=== PATIENT | female | born 1960 | race Caucasian/White ===

== ENCOUNTER 2024-09-13 17:41 | Emergency (ER) | payer OTHER, SELFPAY ==
[2024-09-13 17:47] VITALS: BP 125/69; PULSE 67; RESP 14; TEMP 36.5; O2SAT 96; BMI 21.4
--- NOTE | 2024-09-13 18:43 | DI.RAD.S_ITS ---
PROCEDURE: XR CERVICAL SPINE 2V OR 3V INDICATIONS: injury TECHNIQUE: 3 view(s) of the cervical spine were acquired. COMPARISON: None. FINDINGS: Bones: No fractures or dislocations to the T1 level. The lateral masses of C1 appear intact on the odontoid view. No suspicious bony lesions. Soft tissues: No prevertebral soft tissue swelling. IMPRESSION: No acute displaced fracture or traumatic subluxation. Approved by: Lorin Evangelista M.D.,Ph.D. on 09/13/2024 at 20:07
--- NOTE | 2024-09-13 18:43 | DI.RAD.S_ITS ---
PROCEDURE: XR HAND LT MIN 3V INDICATIONS: injury TECHNIQUE: 3 views of the hand(s) acquired. COMPARISON: None. FINDINGS: Bones: No fractures or dislocations. Carpal bones are normally aligned. No suspicious bony lesions. Soft tissues: No suspicious soft tissue calcifications. IMPRESSION: No acute bony abnormality. Approved by: oLrin Evangelista M.D.,Ph.D. on 09/13/2024 at 20:07
--- NOTE | 2024-09-13 18:43 | DI.RAD.S_ITS ---
PROCEDURE: XR WRIST LT MIN 3V INDICATIONS: injury TECHNIQUE: 4 views of the wrist were acquired. COMPARISON: None. FINDINGS: Bones: No fractures or dislocations. No suspicious bony lesions. Soft tissues: No suspicious soft tissue calcifications. IMPRESSION: No acute bony abnormality. If symptoms persist with conservative management, consider cross-sectional imaging such as CT or MRI. Approved by: Lorin Evangelista M.D.,Ph.D. on 09/13/2024 at 20:12
--- NOTE | 2024-09-13 18:43 | DI.RAD.S_ITS ---
PROCEDURE: XR HAND RT MIN 3V INDICATIONS: injury TECHNIQUE: 3 views of the hand(s) acquired. COMPARISON: None. FINDINGS: Bones: Ossific density adjacent to the ulnar aspect of the 3rd PIP appears well-corticated and favored to represent degenerative changes, however acute fracture cannot be excluded. Carpal bones are normally aligned. No suspicious bony lesions. Soft tissues: No suspicious soft tissue calcifications. IMPRESSION: Ossific density adjacent to the ulnar aspect of the 3rd PIP joint, possible degenerative changes, however acute fracture cannot be excluded. Recommend correlation with point tenderness. No other acute osseous abnormality identified. Scattered degenerative changes noted in the interphalangeal joints. Approved by: Lorin Evangelista M.D.,Ph.D. on 09/13/2024 at 20:10
--- NOTE | 2024-09-13 18:43 | DI.RAD.S_ITS ---
PROCEDURE: XR THORACIC SPINE 3V INDICATIONS: injury TECHNIQUE: 3 views of the thoracic spine were acquired. COMPARISON: None. FINDINGS: Bones: No fractures or dislocations. No suspicious bony lesions. 12 pairs of ribs are noted, and appear intact where visualized. Soft tissues: No paravertebral stripe thickening. IMPRESSION: No acute bony abnormality. If symptoms persist with conservative management, consider cross-sectional imaging such as CT or MRI. Approved by: Lorin Evangelista M.D.,Ph.D. on 09/13/2024 at 20:11
--- NOTE | 2024-09-13 18:43 | DI.RAD.S_ITS ---
PROCEDURE: XR WRIST RT MIN 3V INDICATIONS: injury TECHNIQUE: 4 views of the wrist were acquired. COMPARISON: None. FINDINGS: Bones: No fractures or dislocations. No suspicious bony lesions. Soft tissues: No suspicious soft tissue calcifications. IMPRESSION: No acute bony abnormality. Approved by: Lorin Evangelista M.D.,Ph.D. on 09/13/2024 at 20:13
--- NOTE | 2024-09-13 18:45 | PC.NURSE ---
Patient reports at work Thursday, glass doors of [employer] fell down onto her upper back, bilateral arms and wrists. Patient reports severe pain in both hands and wrists. States she has been having a hard time completing tasks. CMS intact. Old bruises noted to forearm and on dorsal aspect of hand near thumb. Patient has good ROM in both upper extremities however reports pain with movement. Tender to palpation on paraspinal muscles.
[2024-09-13] MEDS: KETOROLAC 30 MG/ML VIAL IM (18:51)
--- NOTE | 2024-09-13 18:57 | ED_ITS ---
HPI - Back Pain/Injury General Chief Complaint: Back Pain/Injury Stated Complaint: severe headache, neck injury on thursday Time Seen by Provider: 09/13/24 17:56 Related Data Home Medications Medication Instructions Recorded Confirmed citalopram PO 09/13/24 09/13/24 lamotrigine [Lamictal] PO PRN 09/13/24 09/13/24 lorazepam PO PRN 09/13/24 09/13/24 trazodone PO 09/13/24 09/13/24 Allergies Allergy/AdvReac Type Severity Reaction Status Date / Time bee venom protein (honey bee) Allergy Unknown Verified 09/13/24 17:24 codeine Allergy Unknown Verified 09/13/24 17:24 Patient History Social History Smoking Status: Unknown if ever smoked Smoking Status: Unknown if ever smoked Exam Initial Vital Signs Initial Vital Signs: Vital Signs Temperature 97.7 F 09/13/24 17:47 Pulse Rate 67 09/13/24 17:47 Respiratory Rate 14 09/13/24 17:47 Blood Pressure 125/69 09/13/24 17:47 Pulse Oximetry 96 09/13/24 17:47 Oxygen Delivery Method Room Air 09/13/24 17:47 Course Orders Ordered: ED Orders 09/13/24 18:43 XR cervical spine 2V or 3V Stat XR hand LT min 3V Stat XR hand RT min 3V Stat XR thoracic spine 3V Stat XR wrist LT min 3V Stat XR wrist RT min 3V Stat Discontinued Medications Ketorolac Tromethamine (Ketorolac 30 Mg/Ml Vial) 30 mg IM NOW ONE Stop: 09/13/24 18:46 Last Admin: 09/13/24 18:51 Dose: 30 mg Documented By: [facility] Vital Signs Vital signs: Vital Signs - 8 hr 09/13/24 17:47 Temperature 97.7 F Pulse Rate 67 Respiratory Rate 14 Blood Pressure 125/69 Pulse Oximetry 96 Oxygen Delivery Method Room Air Discharge Plan Departure Prescriptions: No Action lamotrigine [Lamictal] PO PRN lorazepam PO PRN citalopram PO trazodone PO Referrals: Miscellaneous,Doctor, [Primary Care Provider] -
[2024-09-13 19:55] VITALS: BP 122/77; PULSE 56; RESP 16; TEMP 36.6; O2SAT 97
--- NOTE | 2024-09-13 21:36 | ED.BACK ---
HPI - Back Pain/Injury General Chief Complaint: Back Pain/Injury Stated Complaint: severe headache, neck injury on thursday Time Seen by Provider: 09/13/24 17:56 History of Present Illness HPI Narrative: 64-year-old female presents for head, neck, shoulder, arm, hand pain since injury 2 days prior. Patient works at [employer] and was bending over a cabinet when the glass case fell, landing on her upper back, wrists, and arms. Patient reporting pain from her shoulders to her hands. Referred to ED today from [facility] Jarocho states that she has already called for a physical therapy appointment at [facility], upcoming in the next 2 weeks. Denies numbness, weakness. No medications taken prior to arrival. Denies previous injuries to these areas. Unknown how heavy the deli glass is. Related Data Home Medications Medication Instructions Recorded Confirmed citalopram PO 09/13/24 09/13/24 lamotrigine [Lamictal] PO PRN 09/13/24 09/13/24 lorazepam PO PRN 09/13/24 09/13/24 trazodone PO 09/13/24 09/13/24 Allergies Allergy/AdvReac Type Severity Reaction Status Date / Time bee venom protein (honey bee) Allergy Unknown Verified 09/13/24 17:24 codeine Allergy Unknown Verified 09/13/24 17:24 Patient History Social History Smoking Status: Unknown if ever smoked Smoking Status: Unknown if ever smoked Exam Initial Vital Signs Initial Vital Signs: Vital Signs Temperature 97.7 F 09/13/24 17:47 Pulse Rate 67 09/13/24 17:47 Respiratory Rate 14 09/13/24 17:47 Blood Pressure 125/69 09/13/24 17:47 Pulse Oximetry 96 09/13/24 17:47 Oxygen Delivery Method Room Air 09/13/24 17:47 Const: Awake, alert, no acute distress, nontoxic appearing Neck: No step-offs, no midline tenderness, full range of motion MSK: No deformity, full range of motion, able to make thumbs up, A-Okay sign, touch all fingers to thumbs bilaterally. Skin: Warm, Dry, intact, no rashes Neuro: AO x3, CN II-XII grossly intact, moves all extremities Course Orders Ordered: Discontinued Medications Ketorolac Tromethamine (Ketorolac 30 Mg/Ml Vial) 30 mg IM NOW ONE Stop: 09/13/24 18:46 Last Admin: 09/13/24 18:51 Dose: 30 mg Documented By: LEONID Tramadol HCl (Tramadol 50 Mg Prepack) 1 bottle MISC DIRECTED ONE Stop: 09/13/24 21:47 Last Admin: 09/13/24 21:59 Dose: 1 bottle Documented By: RUPERTO Vital Signs Vital signs: Vital Signs - 8 hr 09/13/24 17:47 09/13/24 19:55 Temperature 97.7 F 97.9 F Pulse Rate 67 56 L Respiratory Rate 14 16 Blood Pressure 125/69 122/77 Pulse Oximetry 96 97 Oxygen Delivery Method Room Air Room Air MDM - Back Pain/Injury MDM Narrative Medical decision making narrative: Shoulder, arm, wrist, hand pain after workplace accident 2 days prior. Neurovascularly intact without any deficits. No deformities. No medications taken prior to arrival. X-ray imaging of C-spine, hands, thoracic spine, wrists obtained. Of note, there was an ossific density adjacent to the ulnar aspect of the 3rd PIP joint noted on the right-hand x-ray. This does not correlate with any point tenderness on physical exam. Patient was neurovascularly intact with full range of motion of all of her joints. Based on patient's description of events I have low suspicion for acute bony injury at this time. Patient already has scheduled upcoming PT appointment. [facility] paperwork filled out. Short course of pain medications sent with the patient. Placed in bilateral wrist splints for comfort as needed. Discharge Plan Departure Patient Disposition: Home Clinical Impression: Neck pain, Bilateral shoulder pain, Bilateral hand pain Instructions: DI for Contusion Activity Restrictions/Additional Instructions: YOUR X-RAYS TODAY DID NOT SHOW ANY ACUTE FRACTURES. TAKE 1000 MG OF TYLENOL AND 400 MG OF IBUPROFEN EVERY 6-8 HOURS NEEDED FOR PAIN. TAKE NO MORE THAN 4000 MG OF TYLENOL TOTAL DAILY. A PREPACK OF PAIN MEDICATIONS HAS BEEN GIVEN TO YOU. DO NOT TAKE THIS MEDICATION WITH ALCOHOL OR BEFORE DRIVING IT MAY CAUSE DROWSINESS. FOLLOW UP WITH YOUR PHYSICAL THERAPY APPOINTMENTS SCHEDULED. ALSO I RECOMMEND FOLLOWING UP WITH A PRIMARY CARE DOCTOR. Prescriptions: No Action lamotrigine [Lamictal] PO PRN lorazepam PO PRN citalopram PO trazodone PO Referrals: Miscellaneous,Doctor, MD [Primary Care Provider] - Stand Alone Forms: Patient Portal/API/Survey, Work Release Note
[2024-09-13] MEDS: TRAMADOL 50 MG PREPACK 1 BOTTLE MISC (21:59)
[2024-09-13 22:18] VITALS: BP 125/70; PULSE 65; RESP 16; TEMP 36.6; O2SAT 98
== END 2024-09-13 22:18 | disposition home or self-care (01) ==
PROVIDERS: Emergency Provider Emergency Medicine
DX: M54.2 Cervicalgia (principal); M25.512 Pain in left shoulder; M25.511 Pain in right shoulder; M79.642 Pain in left hand; M79.641 Pain in right hand; R51.9 Headache, unspecified; M25.532 Pain in left wrist; M25.531 Pain in right wrist; W20.8XXA Other cause of strike by thrown, projected or falling object, initial encounter; Y92.512 Supermarket, store or market as the place of occurrence of the external cause; Y99.0 Civilian activity done for income or pay
CPT/HCPCS: 72040; 72072; 73110; 73130; 96372; 99284; J1885

== ENCOUNTER → 2025-02-17 13:48 | Outpatient (CLI) | payer OTHER, SELFPAY ==
--- NOTE | 2025-02-17 13:50 | DI.CT.S_ITS ---
PROCEDURE: CT CERVICAL SPINE WO CON INDICATIONS: left cervical radiculopathy TECHNIQUE: Noncontrast 3 mm thick sections acquired from the skull base to the T4 level. Sagittal and coronal reformats were then constructed. For radiation dose reduction, the following was used: automated exposure control, adjustment of mA and/or kV according to patient size. COMPARISON: None. FINDINGS: Image quality: Excellent. Bones: No fractures or dislocations. Multilevel degenerative changes of the cervical spine, most pronounced at C6-C7. Straightening of the normal cervical lordosis. Minimal retrolisthesis of C6 on C7 and minimal anterolisthesis of C7 on T1. [id number] central canal stenosis at C6-C7. At least moderate bilateral neural foraminal stenosis at C6-C7. No significant stenosis at other levels. Decreased osseous mineralization. Visualized superior ribs are intact. Soft tissues: Prevertebral soft tissues are normal in thickness. No paravertebral hematomas. No apical pneumothoraces. [id number] emphysematous changes. Subcutaneous nodule within the upper back/lower neck just to the left of midline measuring 1.4 cm, likely a sebaceous cyst. IMPRESSION: Degenerative changes of the cervical spine as described above, most pronounced at C6-C7. Dictated by: Kyrie Trevizo M.D. on 02/17/2025 at 21:06 Approved by: Kyrie Trevizo M.D. on 02/17/2025 at 21:08
== END ==
LOC: CT 13:50
PROVIDERS: Referring Provider Preventive Medicine Public Health & General Preventive Medicine; Visit Provider Preventive Medicine Public Health & General Preventive Medicine
DX: M47.22 Other spondylosis with radiculopathy, cervical region (principal)
CPT/HCPCS: 72125